=== PATIENT | male | born 1995 | race Caucasian/White ===

== ENCOUNTER 2018-05-16 03:59 | Emergency (ER) | payer MEDICAID, MEDICARE ==
[2018-05-16 04:14] VITALS: BMI 32.5
[2018-05-16 04:19] VITALS: BP 142/79; PULSE 94; RESP 18; TEMP 98.7; O2SAT 99
--- NOTE | 2018-05-16 04:30 | ED PDOC ---
HPI: General Adult Time Seen by Provider: 05/16/18 04:20 Chief Complaint (Nursing): Medical Clearance Chief Complaint (Provider): Back Pain, Feet Blisters History Per: Patient History/Exam Limitations: no limitations Onset/Duration Of Symptoms: Other ("months") Current Symptoms Are (Timing): Still Present Additional Complaint(s): 23 year old male, with a past medical history of ADHD and homelessness, presenting with multiple complaints. Patient reports that he has had back pain for many weeks and blisters developing on his feet secondary to tight shoes and lots of walking. Patient is also complaining of tooth pain ongoing for many months. Patient reports he has a rash all over his body and is requesting food and underwear in the ED. PMD: None Past Medical History Reviewed: Historical Data, Nursing Documentation, Vital Signs Vital Signs: Last Vital Signs Temp 98.7 F 05/16/18 04:14 Pulse 94 H 05/16/18 04:14 Resp 18 05/16/18 04:14 BP 142/79 05/16/18 04:14 Pulse Ox 99 05/16/18 04:52 - Medical History PMH: Denies: Diabetes, Hepatitis, HIV, HTN, Seizures, Sexually Transmitted Disease Other PMH: ADHD - Surgical History Surgical History: No Surg Hx - Family History Family History: States: Unknown Family Hx - Living Arrangements Living Arrangements: Other (homeless) - Social History Current smoker - smoking cessation education provided: No Drugs: Other (PCP) - Immunization History Hx Tetanus Toxoid Vaccination: No Hx Influenza Vaccination: No Hx Pneumococcal Vaccination: No - Home Medications Home Medications: Ambulatory Orders Medication Instructions Recorded DiphenhydrAMINE [Benadryl] 25 mg PO Q6 PRN #30 cap 05/16/18 Ibuprofen [Motrin Tab] 600 mg PO Q8 PRN #60 tab 05/16/18 - Allergies Allergies/Adverse Reactions: Allergies Allergy/AdvReac Type Severity Reaction Status Date / Time No Known Allergies Allergy Verified 05/16/18 04:14 Review of Systems ROS Statement: Except As Marked, All Systems Reviewed And Found Negative ENT: Positive for: Mouth Pain (dental) Musculoskeletal: Positive for: Neck Pain, Back Pain Skin: Positive for: Rash (full body), Lesions (left eyebrow lesions which was sutured weeks ago), Other (blisters to bilateral feet) Physical Exam - Reviewed Nursing Documentation Reviewed: Yes Vital Signs Reviewed: Yes - Physical Exam Appears: Positive for: No Acute Distress (unkempt) Head Exam: Negative for: ATRAUMATIC (3 cm vertical healed laceration to left lateral eye brow with resolving eccymsosis at the inferolateral orbital area) Skin: Positive for: Rash (raised erythematous lesions to extremities and back consistent with insect) Eye Exam: Positive for: EOMI, PERRL ENT: Positive for: Other (dental carries noted; poor dentition) Neck: Positive for: Normal, Painless ROM, Supple Cardiovascular/Chest: Positive for: Regular Rate, Rhythm. Negative for: Murmur Respiratory: Positive for: Normal Breath Sounds. Negative for: Respiratory Distress Gastrointestinal/Abdominal: Positive for: Soft. Negative for: Tenderness Back: Positive for: Normal Inspection (full ROM). Negative for: L CVA Tenderness, R CVA Tenderness Extremity: Positive for: Other (callused lesions to bilateral medial hallux consistent with blisters) Lymphatic: Negative for: Adenopathy Neurologic/Psych: Positive for: Alert. Negative for: Motor/Sensory Deficits - ECG O2 Sat by Pulse Oximetry: 99 (RA) Pulse Ox Interpretation: Normal Medical Decision Making Medical Decision Making: Impression: homelessness Plan: -Benadryl 25mg PO -Motrin 600mg PO -Reevaluation 0434 Patient is now reporting nausea in ED. Phillip ordered Pt with multiple nonemergent complaints. No acutely emergent issues on exam. Likely malingering. Scribe Attestation: Documented by Honorio Stoner, acting as a scribe for Mildred Baez MD. Provider Scribe Attestation: All medical record entries made by the Scribe were at my direction and personally dictated by me. I have reviewed the chart and agree that the record accurately reflects my personal performance of the history, physical exam, medical decision making, and the department course for this patient. I have also personally directed, reviewed, and agree with the discharge instructions and disposition. Disposition - Clinical Impression Clinical Impression: Back pain, Blister of foot, Toothache, Insect bite, Homelessness - Disposition Referrals: [facility] [place] [Outside] Disposition: Routine/Home Disposition Time: 04:30 Condition: IMPROVED Prescriptions: DiphenhydrAMINE [Benadryl] 25 mg PO Q6 PRN #30 cap PRN Reason: Itching / Pruritus Ibuprofen [Motrin Tab] 600 mg PO Q8 PRN #60 tab PRN Reason: Pain, Moderate (4-7) Instructions: Low Back Pain in Adults, Blisters, Insect Bites and Stings (DC), Dental Pain (DC), General (DC) Forms: [facility] [facility] (Estonian)
== END 2018-05-16 04:57 | disposition home or self-care (01) ==
LOC: H.ER 03:59
DX: M54.9 Dorsalgia, unspecified (principal); S90.821A Blister (nonthermal), right foot, initial encounter; S90.822A Blister (nonthermal), left foot, initial encounter; K08.89 Other specified disorders of teeth and supporting structures; F90.9 Attention-deficit hyperactivity disorder, unspecified type; T14.8XXA Other injury of unspecified body region, initial encounter; W57.XXXA Bitten or stung by nonvenomous insect and other nonvenomous arthropods, initial encounter; Z59.0 Homelessness

== ENCOUNTER 2018-06-25 03:52 | Emergency (ER) | payer MEDICAID, MEDICARE ==
[2018-06-25 03:52] VITALS: BMI 28.3
--- NOTE | 2018-06-25 04:14 | ED PDOC ---
HPI: General Adult Chief Complaint (Provider): "I want to sleep" Additional Complaint(s): 23 yo male with no medical problems presents with EMS needing sleep. Pt states he is tired. Pt denies complaints but reports using PCP earlier today. <Loreta Phan - Last Filed: 06/25/18 04:12> <Eliecer Bonilla - Last Filed: 06/27/18 04:29> Time Seen by Provider: 06/25/18 04:01 Chief Complaint (Nursing): Substance Abuse Past Medical History Reviewed: Historical Data, Nursing Documentation, Vital Signs Vital Signs: Last Vital Signs Temp 98.1 F 06/25/18 04:00 Pulse 80 06/25/18 04:00 Resp 16 06/25/18 04:00 BP 130/80 06/25/18 04:00 Pulse Ox 99 06/25/18 04:00 - Medical History PMH: Denies: Diabetes, Hepatitis, HIV, HTN, Seizures, Sexually Transmitted Disease - Surgical History Surgical History: No Surg Hx - Family History Family History: States: Unknown Family Hx - Living Arrangements Living Arrangements: With Family - Social History Current smoker - smoking cessation education provided: No Drugs: Other - Immunization History Hx Tetanus Toxoid Vaccination: No Hx Influenza Vaccination: No Hx Pneumococcal Vaccination: No <Loreta Phan - Last Filed: 06/25/18 04:12> Vital Signs: Last Vital Signs Temp 98.2 F 06/25/18 04:20 Pulse 92 H 06/25/18 04:20 Resp 18 06/25/18 04:20 BP 110/82 06/25/18 04:20 Pulse Ox 98 06/25/18 04:20 <Eliecer Bonilla - Last Filed: 06/27/18 04:29> - Home Medications Home Medications: Ambulatory Orders Medication Instructions Recorded Atenolol/Chlorthalidone 1 tab PO DAILY 05/21/18 [Atenolol/Chlorthalidone 50 mg-25 mg] MetFORMIN [glucOPHAGE] 1,000 mg PO BID 05/21/18 RX: Simvastatin 20 mg PO HS 05/21/18 Ibuprofen [Motrin Tab] 800 mg PO TID PRN #15 tab 06/03/18 Naproxen [Naprosyn] 500 mg PO Q12H #20 tab 06/25/18 - Allergies Allergies/Adverse Reactions: Allergies Allergy/AdvReac Type Severity Reaction Status Date / Time No Known Allergies Allergy Verified 06/24/18 00:28 Review of Systems ROS Statement: Except As Marked, All Systems Reviewed And Found Negative Constitutional: Negative for: Fever, Chills Cardiovascular: Negative for: Chest Pain, Palpitations Respiratory: Negative for: Cough, Shortness of Breath Psych: Positive for: Other (Tired ) <Loreta Phan - Last Filed: 06/25/18 04:12> Physical Exam - Reviewed Nursing Documentation Reviewed: Yes Vital Signs Reviewed: Yes - Physical Exam Appears: Positive for: Well, Non-toxic, No Acute Distress Head Exam: Positive for: ATRAUMATIC, NORMAL INSPECTION, NORMOCEPHALIC Skin: Positive for: Normal Color, Warm, DRY Eye Exam: Positive for: Normal appearance ENT: Positive for: Normal ENT Inspection Neck: Positive for: Normal, Painless ROM Cardiovascular/Chest: Positive for: Regular Rate, Rhythm Respiratory: Positive for: Normal Breath Sounds. Negative for: Accessory Muscle Use, Respiratory Distress Back: Positive for: Normal Inspection Extremity: Positive for: Normal ROM Neurologic/Psych: Positive for: Alert, Oriented, Gait. Negative for: Facial Droop <Loreta Phan - Last Filed: 06/25/18 04:12> - ECG O2 Sat by Pulse Oximetry: 99 Pulse Ox Interpretation: Normal <Loreta Phan - Last Filed: 06/25/18 04:12> Disposition - Patient ED Disposition Is Patient to be Admitted: No Counseled Patient/Family Regarding: Diagnosis, Need For Followup - Disposition Disposition: Routine/Home Disposition Time: 04:12 <Loreta Phan - Last Filed: 06/25/18 04:12> <Eliecer Bonilla - Last Filed: 06/27/18 04:29> - Clinical Impression Clinical Impression: Normal exam - Disposition Condition: STABLE Forms: [facility] (Malaysian) - PA / THERMOMETER TESTER / Resident Statement MD/DO has reviewed & agrees with the documentation as recorded. <Eliecer Bonilla - Last Filed: 06/27/18 04:29>
[2018-06-25 07:27] VITALS: BP 110/82; PULSE 92; RESP 18; TEMP 98.2; O2SAT 98
== END 2018-06-25 04:20 | disposition home or self-care (01) ==
LOC: H.ER 03:52
DX: Z00.00 Encounter for general adult medical examination without abnormal findings (principal)

== ENCOUNTER 2018-06-25 06:04 | Emergency (ER) | payer MEDICAID ==
[2018-06-25 06:07] VITALS: BMI 30.8
[2018-06-25 06:08] VITALS: BP 129/80; PULSE 80; RESP 18; TEMP 98.2; O2SAT 98
--- NOTE | 2018-06-25 07:58 | ED PDOC ---
HPI: Back Time Seen by Provider: 06/25/18 07:08 Chief Complaint (Nursing): Back Pain Additional Complaint(s): 23 y/o F come to ED complaining of low back pain that began a few hours ago. Pain is pressure-like, constant, non-radiating and NOT associated with paresthesias, saddle anesthesia or urinary problems. Pt was recently discharged from ER. Pt is sleepy. Pt denies fever, chest pain, SOB, abdominal pain, nausea, vomiting, constipation, rash or peripheral edema. NKA Meds: none PMD: none PMHx: denied PSHx: denied SHx: lives alone, fci?, smokes, drinks alcohol and admits to marihuana use. Past Medical History Vital Signs: Last Vital Signs Temp 98.2 F 06/25/18 06:07 Pulse 80 06/25/18 06:07 Resp 18 06/25/18 06:07 BP 129/80 06/25/18 06:07 Pulse Ox 98 06/25/18 06:07 - Medical History PMH: Denies: Diabetes, Hepatitis, HIV, HTN, Seizures, Sexually Transmitted Disease - Surgical History Surgical History: No Surg Hx - Family History Family History: States: Unknown Family Hx - Immunization History Hx Tetanus Toxoid Vaccination: No Hx Influenza Vaccination: No Hx Pneumococcal Vaccination: No - Home Medications Home Medications: Ambulatory Orders Medication Instructions Recorded Atenolol/Chlorthalidone 1 tab PO DAILY 05/21/18 [Atenolol/Chlorthalidone 50 mg-25 mg] MetFORMIN [glucOPHAGE] 1,000 mg PO BID 05/21/18 Simvastatin 20 mg PO HS 05/21/18 Ibuprofen [Motrin Tab] 800 mg PO TID PRN #15 tab 06/03/18 Naproxen [Naprosyn] 500 mg PO Q12H #20 tab 06/25/18 - Allergies Allergies/Adverse Reactions: Allergies Allergy/AdvReac Type Severity Reaction Status Date / Time No Known Allergies Allergy Verified 06/24/18 00:28 Review of Systems Constitutional: Negative for: Fever, Chills Eyes: Negative for: Pain ENT: Negative for: Ear Pain, Mouth Pain, Throat Pain Cardiovascular: Negative for: Chest Pain Respiratory: Negative for: Cough, Shortness of Breath Gastrointestinal: Negative for: Nausea, Vomiting, Abdominal Pain Genitourinary Male: Negative for: Dysuria, Frequency, Hematuria Musculoskeletal: Positive for: Back Pain. Negative for: Neck Pain, Shoulder Pain Neurological: Negative for: Weakness, Numbness, Incoordination, Dizziness Physical Exam - Physical Exam Appears: Positive for: Well, No Acute Distress Head Exam: Positive for: ATRAUMATIC, NORMAL INSPECTION Skin: Positive for: Normal Color Eye Exam: Positive for: Normal appearance, EOMI ENT: Positive for: Normal ENT Inspection Neck: Positive for: Normal, Painless ROM Cardiovascular/Chest: Positive for: Regular Rate, Rhythm Respiratory: Positive for: Normal Breath Sounds. Negative for: Crackles, Rhonchi, Wheezing Gastrointestinal/Abdominal: Positive for: Normal Exam, Bowel Sounds, Soft. Negative for: Tenderness Back: Positive for: Normal Inspection. Negative for: L CVA Tenderness, R CVA Tenderness, Vertebral Tenderness, Decreased ROM Extremity: Positive for: Normal ROM. Negative for: Tenderness, Pedal Edema - ECG O2 Sat by Pulse Oximetry: 98 Medical Decision Making Medical Decision Making: At: 07:15, pt was evaluated and examined with Dr Almanzar. Pt is not in acute d istress, no paraspinal tenderness on lower back. At 09:24, after reviewing chart. Low back pain may be a chronic issue. Pt was recommended to obtain a PCP and follow up as outpatient. -Pt instructed to apply warm compresses and use of OTC analgesic. -Pt will be discharged home. Disposition - Clinical Impression Clinical Impression: Chronic back pain - Patient ED Disposition Is Patient to be Admitted: No - Disposition Referrals: [facility] [Outside] Disposition Time: 09:28 Condition: IMPROVED Prescriptions: Naproxen [Naprosyn] 500 mg PO Q12H #20 tab Instructions: Chronic Pain Forms: [id number] [facility] (Sri Lankan)
== END 2018-06-25 09:26 | disposition home or self-care (01) ==
LOC: H.ER 06:04
DX: G89.29 Other chronic pain (principal)

== ENCOUNTER 2018-07-02 15:13 | Emergency (ER) | payer MEDICAID, MEDICARE ==
[2018-07-02 15:13] VITALS: BMI 30.8
--- NOTE | 2018-07-02 15:21 | ED PDOC ---
HPI: Psych/Substance Abuse Chief Complaint (Provider): crisis eval History Per: Patient Additional Complaint(s): 23 y/o male presents for crisis evaluation. Patient was at train station and tried to get on a train without paying but was intercepted by police. Police threatened him with a summons and patient stated he was going to kill himself, so he was brought to ED by police. Upon arrival patient denies any intention of harming himself or others. He admits to drinking alcohol last night and also using PCP. Patient also has secondary complaint of pain to right side of neck ongoing for 1 week. He denies trauma or injury, denies vision changes, dizziness, chest pain, shortness of breath or dyspnea on exertion. Patient arrives with police but is not under arrest. PMD: none <Mildred Arnett - Last Filed: 07/02/18 15:49> <Maria C Coleman - Last Filed: 07/02/18 22:45> Time Seen by Provider: 07/02/18 15:20 Supervising Attending Note - Attestation: I have personally seen and examined this patient.: No I have reviewed all pertinent clinical information, including history, physical exam and plan: Yes <Maria C Coleman - Last Filed: 07/02/18 22:45> Past Medical History Reviewed: Historical Data, Nursing Documentation, Vital Signs - Medical History PMH: No Chronic Diseases - Surgical History Surgical History: No Surg Hx - Family History Family History: States: No Known Family Hx - Living Arrangements Living Arrangements: Other (non-domiciled) - Social History Current smoker - smoking cessation education provided: No Alcohol: Social Drugs: Other (PCP) <Mildred Arnett - Last Filed: 07/02/18 15:49> Vital Signs: Last Vital Signs Temp 97.0 F L 07/02/18 15:21 Pulse 89 07/02/18 15:21 Resp 16 07/02/18 15:21 BP 144/80 07/02/18 15:21 Pulse Ox 99 07/02/18 16:43 <Maria C Coleman - Last Filed: 07/02/18 22:45> - Home Medications Home Medications: Ambulatory Orders Medication Instructions Recorded RX: Ibuprofen [Motrin Tab] 400 mg PO Q6 PRN #20 tab 07/02/18 - Allergies Allergies/Adverse Reactions: Allergies Allergy/AdvReac Type Severity Reaction Status Date / Time No Known Allergies Allergy Verified 06/24/18 00:28 Review of Systems ROS Statement: Except As Marked, All Systems Reviewed And Found Negative Constitutional: Negative for: Fever Cardiovascular: Negative for: Chest Pain Musculoskeletal: Positive for: Neck Pain Psych: Positive for: Suicidal ideation, Other (PCP and etoh use last night) <Mildred Arnett - Last Filed: 07/02/18 15:49> Physical Exam - Reviewed Nursing Documentation Reviewed: Yes Vital Signs Reviewed: Yes - Physical Exam Appears: Positive for: Well, Non-toxic, No Acute Distress Skin: Positive for: Normal Color. Negative for: Rash Eye Exam: Positive for: Normal appearance Neck: Positive for: Pain On Movement Of Neck Cardiovascular/Chest: Positive for: Regular Rate, Rhythm Respiratory: Positive for: Normal Breath Sounds. Negative for: Wheezing, Respiratory Distress Extremity: Positive for: Normal ROM Neurologic/Psych: Positive for: Alert, Oriented <Mildred Arnett - Last Filed: 07/02/18 15:49> - ECG O2 Sat by Pulse Oximetry: 99 Pulse Ox Interpretation: Normal <Mildred Arnett - Last Filed: 07/02/18 15:49> Medical Decision Making Medical Decision Makin23 y/o male with neck pain, here for crisis eval Plan: PO motrin Crisis consult As per crisis counselor and psychiatrist professional security officer Dr. Andrews, patient does not meet criteria for admission and is stable for discharge. Previous records reviewed. Patient was seen earlier this morning at [place] ED for same complaints. He was given rx motrin and states he still have the rx. He was instructed to fill med at any pharmacy and take as needed for neck pain. Patient was referred to clinic for follow up. <Mildred Arnett - Last Filed: 07/02/18 15:49> Disposition - Patient ED Disposition Is Patient to be Admitted: No Counseled Patient/Family Regarding: Diagnosis, Need For Followup, Rx Given - Disposition Disposition: Routine/Home Disposition Time: 15:41 <Mildred Arnett - Last Filed: 07/02/18 15:49> <Maria C Coleman - Last Filed: 07/02/18 22:45> - Clinical Impression Clinical Impression: Neck sprain, Phencyclidine (PCP) use disorder, mild, abuse - Disposition Referrals: [facility] [place] [Outside] Condition: STABLE Additional Instructions: Filll rx for motrin that you were provided with earlier. Follow up with clinic. Instructions: Neck Sprain (DC), Drug Abuse Treatment Forms: [employer] [facility] (Cymro)
[2018-07-02 15:25] VITALS: BP 144/80; PULSE 89; RESP 16; TEMP 97; O2SAT 99
== END 2018-07-02 16:03 | disposition home or self-care (01) ==
LOC: H.ER 15:13
DX: S13.9XXA Sprain of joints and ligaments of unspecified parts of neck, initial encounter (principal); F16.10 Hallucinogen abuse, uncomplicated; Z00.8 Encounter for other general examination

== ENCOUNTER 2018-08-18 03:50 | Inpatient (IN) | payer MEDICARE, MEDICAID ==
[2018-08-18 04:00] VITALS: BMI 28.1
--- NOTE | 2018-08-18 05:09 | ED PDOC ---
HPI: Psych/Substance Abuse Time Seen by Provider: 08/18/18 04:06 Chief Complaint (Nursing): Psychiatric Evaluation Chief Complaint (Provider): Suicidal Attempt History Per: Patient, EMS History/Exam Limitations: no limitations Onset/Duration Of Symptoms: Mins (just prior to arrival) Additional Complaint(s): 23 year old homeless male with pmhx of depression presents to the ED via EMS s/p a self-reported suicide attempt by trying to hang himself with a chain. Upon trying to evaluation patient, he kept stating he wants to be left to sleep because he has been up all day. PMD: none provided Past Medical History Reviewed: Historical Data, Nursing Documentation, Vital Signs Vital Signs: Last Vital Signs Temp 98.8 F 08/18/18 04:00 Pulse 76 08/18/18 04:00 Resp 16 08/18/18 04:00 BP 124/68 08/18/18 04:00 Pulse Ox 99 08/18/18 04:00 - Medical History PMH: Bipolar Disorder, Depression, Schizophrenia Denies: Diabetes, Hepatitis, HIV, HTN, Chronic Kidney Disease, Seizures, Sexually Transmitted Disease - Surgical History Surgical History: No Surg Hx - Family History Family History: States: Unknown Family Hx - Living Arrangements Living Arrangements: Other (homeless) - Social History Current smoker - smoking cessation education provided: Yes Alcohol: None Drugs: Cannabis, Cocaine, Other (PCP) - Immunization History Hx Tetanus Toxoid Vaccination: No Hx Influenza Vaccination: No Hx Pneumococcal Vaccination: No - Home Medications Home Medications: Ambulatory Orders Medication Instructions Recorded RX: Amoxicillin 500 mg PO TID #21 tablet 08/17/18 RX: Ibuprofen [Motrin Tab] 600 mg PO Q6 #15 tab 08/17/18 - Allergies Allergies/Adverse Reactions: Allergies Allergy/AdvReac Type Severity Reaction Status Date / Time No Known Allergies Allergy Verified 08/20/18 12:04 Review of Systems ROS Statement: Except As Marked, All Systems Reviewed And Found Negative Psych: Positive for: Depression, Suicidal ideation (and attempt) Physical Exam - Reviewed Nursing Documentation Reviewed: Yes Vital Signs Reviewed: Yes - Physical Exam Appears: Positive for: No Acute Distress Head Exam: Positive for: ATRAUMATIC, NORMOCEPHALIC Skin: Positive for: Normal Color. Negative for: Rash Eye Exam: Positive for: Normal appearance ENT: Positive for: Normal ENT Inspection Neck: Positive for: Normal, Painless ROM, Supple Cardiovascular/Chest: Positive for: Regular Rate, Rhythm Respiratory: Positive for: Normal Breath Sounds Gastrointestinal/Abdominal: Positive for: Normal Exam, Soft. Negative for: Tenderness Extremity: Positive for: Normal ROM Neurologic/Psych: Positive for: Alert (and awake) - Laboratory Results Result Diagrams: 08/18/18 11:50 08/18/18 11:50 - ECG O2 Sat by Pulse Oximetry: 99 (RA) Pulse Ox Interpretation: Normal Medical Decision Making Medical Decision Making: Time: 407 Initial Impression: 23 year old male s/p suicidal gesture in setting of known depression Initial Plan: --Crisis evaluation --1:1 observation 0700 Patient care endorsed from this provider to Dr. Quezada pending crisis evaluation. Scribe Attestation: Documented by Alta Onofre, acting as a scribe for Kee Anderson MD. Provider Scribe Attestation: All medical record entries made by the Scribe were at my direction and personally dictated by me. I have reviewed the chart and agree that the record accurately reflects my personal performance of the history, physical exam, medical decision making, and the department course for this patient. I have also personally directed, reviewed, and agree with the discharge instructions and disposition. Disposition - Clinical Impression Clinical Impression: Depression - Patient ED Disposition Is Patient to be Admitted: Transfer of Care - Disposition Disposition: Transfer of Care Disposition Time: 07:00 Condition: FAIR Patient Signed Over To: Estefani Quezada
[2018-08-18 06:48] VITALS: PULSE 70
--- NOTE | 2018-08-18 07:36 | ED PDOC ---
- Laboratory Results Result Diagrams: 08/18/18 11:50 08/18/18 11:50 - ECG O2 Sat by Pulse Oximetry: 98 (RA) Pulse Ox Interpretation: Normal Medical Decision Making Medical Decision Makin:[address] Anderson to this provider. Patient presents with extensive psychiatric history after an attempted suicide reportedly by hanging. Pending crisis evaluation If there is an indication for admission, will provide full medical workup. 11:24 Pt to be admitted to psychiatry under Dr. Andrews for depression. Medically optimized. Scribe Attestation: Documented by Veronica Larsen acting as a scribe for Estefani Quezada MD Provider Scribe Attestation: All medical record entries made by the Scribe were at my direction and personally dictated by me. I have reviewed the chart and agree that the record accurately reflects my personal performance of the history, physical exam, medical decision making, and the department course for this patient. I have also personally directed, reviewed, and agree with the discharge instructions and disposition. Disposition - Clinical Impression Clinical Impression: Depression - POA Present On Arrival: None - Disposition Disposition: Admitted as In-Patient Disposition Time: 11:24 Condition: FAIR
[2018-08-18 12:00] VITALS: BP 118/63; RESP 20; TEMP 97
[2018-08-18 12:04] LABS: BASO % 0.6 % (0.0-2.0); EOS # 0.3 K/uL (0.0-0.7); EOS % 4.4 % (0.0-4.0); HEMOGLOBIN 13.6 g/dL (12.0-18.0); LYMPH # 1.4 K/uL (1.0-4.3); LYMPH % 20.2 % (20.0-40.0); MEAN CELL VOLUME 93.9 fl (80.0-94.0); MEAN CORPUSCULAR HEMOGLOBIN 31.3 pg (27.0-31.0); MEAN CORPUSCULAR HGB CONC 33.4 g/dL (33.0-37.0); MEAN PLATELET VOLUME 8.7 fl (7.2-11.7); MONO # 0.9 K/uL (0.0-0.8); MONO % 12.5 % (0.0-10.0); NEUT # 4.3 K/uL (1.8-7.0); NEUT % 62.3 % (50.0-75.0); NRBC % 0.1 % (0.0-0.0); RBC 4.35 Mil/uL (4.40-5.90); RED CELL DISTRIBUTION WIDTH 12.5 % (11.5-14.5); WHITE BLOOD COUNT 6.8 K/uL (4.8-10.8)
[2018-08-18 12:10] LABS: BLOOD UREA NITROGEN 12 mg/dl (9-20); CALCIUM 9.5 mg/dL (8.4-10.2); GFR NON-AFRICAN AMERICAN > 60
[2018-08-18] MEDS ORDERED: DiphenhydrAMINE 50 mg/ml Inj IM PRN (12:10)
[2018-08-18] MEDS ORDERED: Magnesium Hydroxide Susp 30 ml UD PO PRN (12:10)
[2018-08-18] MEDS ORDERED: Alum-Mag Hydrox-Simethicone Susp (30 mL) PO PRN (12:10)
--- NOTE | 2018-08-18 12:10 | RAD ---
Date of service: 08/18/2018 HISTORY: possible admission COMPARISON: No prior. FINDINGS: LUNGS: No active pulmonary disease. PLEURA: No significant pleural effusion identified, no pneumothorax apparent. CARDIOVASCULAR: No aortic atherosclerotic calcification present. Normal cardiac size. No pulmonary vascular congestion. OSSEOUS STRUCTURES: No significant abnormalities. VISUALIZED UPPER ABDOMEN: Normal. OTHER FINDINGS: None. IMPRESSION: No active disease.
[2018-08-18 12:18] LABS: BARBITURATES, UR NEGATIVE (NEGATIVE); BENZODIAZEPINES, UR NEGATIVE (NEGATIVE); OPIATES, UR NEGATIVE (NEGATIVE); PHENCYCLIDINE, UR POSITIVE (NEGATIVE)
--- NOTE | 2018-08-18 13:56 | PCM.PSYCH ---
Initial Psychiatric Evaluation - Initial Psychiatric Evaluation Type of Admission: Voluntary Legal Status: Capacity Chief Complaint (in patient's own words): "I don't need to be here." Patient's Reaction to Hospitalization: HPI: 23 yo male w/ psychiatric history of PCP use and h/o of being diagnosed w/ schizophrenia in the past, as per chart. Pt BIB [facility] after he was found with a wire wrapped around his neck as a suicide attempt. Patient now denies, but initially had admitted to using PCP. Pt now denying all symptoms. Denies depression/anxiety/AH/VH/SI/HI. He does not want psychiatric treatment or medications and submitted a 48 hr letter requesting to be discharged. PPHx: H/o multiple psychiatric admission; h/o PCP abuse PMHx: Denies acute medical issues ALL: NKDA SHx: Lives w/ mothers; smokes 5 cig per day; PCP abuse; denies ETOH use Current Medications: Active Medications Generic Name Dose Route Start Last Admin Trade Name Freq PRN Reason Stop Dose Admin Acetaminophen 650 mg 08/18/18 12:10 Tylenol 325mg Tab PO Q4 PRN Pain, moderate (4-7) Al Hydrox/Mg Hydrox/Simethicone 30 ml 08/18/18 12:10 Maalox Plus 30 Ml PO Q4 PRN Dyspepsia Diphenhydramine HCl 50 mg 08/18/18 12:10 Benadryl IM Q6 PRN Extrapyramidal S/S Unable PO Diphenhydramine HCl 50 mg 08/18/18 12:10 Benadryl PO Q6 PRN Extrapyramidal Symptoms Haloperidol 5 mg 08/18/18 12:10 Haldol PO Q4 PRN Agitation Haloperidol Lactate 5 mg 08/18/18 12:10 Haldol IM Q4 PRN Agitation, Unable to Take PO Lorazepam 2 mg 08/18/18 12:10 Ativan IM Q4 PRN Anxiety/Agitation,Unable PO Magnesium Hydroxide 30 ml 08/18/18 12:10 Milk Of Magnesia PO HS PRN Constipation Past Psychiatric History - Past Psychiatric History Previous Treatment History: Inpatient Pertinent Medical Hx (Current Medical&Sleep Prob, Allergies): Allergies Allergy/AdvReac Type Severity Reaction Status Date / Time No Known Allergies Allergy Verified 08/03/18 17:51 Amoxicillin 500 mg PO TID #21 tablet 08/17/18 Ibuprofen [Motrin Tab] 600 mg PO Q6 #15 tab 08/17/18 Review of Systems - Psychiatric Psychiatric: As Per HPI, Irritability, Suicidal Ideation Mental Status Examination - Personal Presentation Personal Presentation: Looks stated age - Affect Affect: Constricted - Motor Activity Motor Activity: Calm - Reliability in Providing Information Reliability in Providing Information: Other (Not cooperative with providing information) - Speech Speech: Organized - Mood Mood: Neutral - Formal Thought Process Formal Thought Process: No Impairment - Hallucinations/Delusions Additional comments: Denies AH/VH/paranoia/delusions - Obsessions/Compulsions Obsessions: No Compulsions: No - Cognitive Functions Orientation: Person, Place, Situation, Time Sensorium: Alert Judgement: Imparied, as evidence by: Poor judgement, Imparied, as evidence by: Lack of insight into illness Memory: Recent intact, as evidence by: Ability to recall events of the day - Risk Risk: Suicidal, Diminished functioning - Strength & Assets Inventory Strength & Assets Inventory: Family support DSM 5 DX - DSM 5 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
--- NOTE | 2018-08-18 14:17 | CARD ---
APPROVED REPORT Date of service: 08/18/2018 EKG Measurement Heart [id number] <Conclusion> Normal sinus rhythm Early repolarization Normal ECG
--- NOTE | 2018-08-18 15:05 | PCM.BM ---
<Bridget Gonzalez - Last Filed: 08/18/18 15:03> Treatment Plan Problems - Problems identified on initial assessmt High Risk Violence Date Initiated: 08/18/18 Time Initiated: 15:03 Assessment reference: NA Status: Active Denial Date Initiated: 08/18/18 Time Initiated: 15:04 Assessment reference: NA Status: Active Defensive Coping Date Initiated: 08/18/18 Time Initiated: 15:05 Assessment reference: NA Status: Active Knowlege deficit Date Initiated: 08/18/18 Time Initiated: 15:09 Assessment reference: NA Status: Active Treatment assets and liabiliti Patient Assests: physically healthy, strong elba Patient Liabilities: relationship conflicts, other (denial of psychiatric problems and drug problems) - Milieu Protocol Maintain good personal hygiene: daily Encourage regular showers, every shift Remind patient to perform daily oral care, every shift Assist patient to perform ADL's Conduct patient checks and document Observation sheet: Q15 minutes Maintain personal safety: every shift Educate patient to report safety concerns to staff, every shift Monitor environment for contraband/sharps Medication safety: Monitor for expected outcome, potential side effects: every shift, Assess barriers to learning: every shift, Assess readiness for medication education: every shift Milieu Narrative: Substance Induced Mood Disorder; PCP Use Disorder -Admit to psychiatry unit -Nicotine patch -Patient currently refusing all psychiatric medications -Screen for involuntary psychiatric commitment -Individual and group therapy -Disposition planning Discharge/Continuing Care - Treatment Team Participation Patient/Family/SO Statement: Substance Induced Mood Disorder; PCP Use Disorder -Admit to psychiatry unit -Nicotine patch -Patient currently refusing all psychiatric medications -Screen for involuntary psychiatric commitment -Individual and group therapy -Disposition planning <Temo Herron - Last Filed: 08/19/18 17:37> Family Contact Family involvement: Family/SO is involved Family contact: Patient declines to allow family contact at present Family contact name: Pt refused. - Goals for Treatment Patient goals for treatment: Pt asked to be discharged and has already signed a 48 hour notice and was screened by [facility] and not accepted. Discharge/Continuing Care - Education Needs Education Needs: Patient Medication, Patient Diagnosis/Disease Process, Patient Coping Skills, Patient Community resources, Patient Aftercare Safety Plan - Discharge Discharge Criteria: Tolerates medication w/o severe side effects, Free of Suicidal thoughts, Free of paranoid thoughts, Free of agitation, Normal sleep pattern, Ability to care for self, Reduction of target symptoms Discharge to:: Home, With Family - Additional Comments 08/19/18 17:36 Pt seen in tx team on 08/19/18. It was explained to pt that it is the treatment teams recommendation that pt staff for treatment of his paranoid, disorganized thoughts. However, pt is refusing to rescind his 48 hour notice and pt will be discharged AMA. Pt presented ot treatment team as calm. Pt denied SI/HI and AVT hallucinations. Pt is oriented X4. - Treatment Team Participation Discussed with Family/SO: No Was Patient/Family/SO present at Treatment Team Meeting: Yes
--- NOTE | 2018-08-18 15:27 | CP.PCM.CON ---
History of Present Illness - History of Present Illness History of Present Illness: 23 y/o man w/ no pmh is admitted for hallucinations secondary to substance abuse. Patient reports he took PCP but doesn't remember when he took it and has since reported hearing voices. Currently denies suicidal/homicidal ideation. Otherwise, patient has no complaints. Patient denies headaches, chest pain, dizziness, dyspnea, abdominal pain, nausea, vomiting, dysuria, or fever. PMH: denies meds: denies PSH: denies FamHx: denies SOC: smokes 5 cigarettes/day, stopped alcohol abuse 2 months ago, recent PCP use ROS: 12 points assessed and negative unless otherwise reported in HPI Review of Systems - Review of Systems All systems: reviewed and no additional remarkable complaints except - Constitutional Constitutional: absent: Chills, Fever, Headache - EENT Eyes: absent: Change in Vision - Cardiovascular Cardiovascular: absent: Chest Pain - Respiratory Respiratory: absent: Dyspnea - Gastrointestinal Gastrointestinal: absent: Abdominal Pain, Nausea, Vomiting - Genitourinary Genitourinary: absent: Dysuria - Integumentary Integumentary: absent: Rash - Neurological Neurological: absent: Dizziness, Headaches - Psychiatric Psychiatric: As Per HPI Past Patient History - Infectious Disease Hx of Infectious Diseases: None - Tetanus Immunizations Tetanus Immunization: Unknown - Past Social History Alcohol: None Drugs: Cannabis, Cocaine, Other (PCP) - CARDIAC Hx Cardiac Disorders: No Hx Hypertension: No - PULMONARY Hx Respiratory Disorders: No Hx Tuberculosis: No - NEUROLOGICAL Hx Neurological Disorder: No HX Cerebrovascular Accident: No Hx Seizures: No - HEENT Hx HEENT Problems: No - RENAL Hx Chronic Kidney Disease: No - ENDOCRINE/METABOLIC Hx Endocrine Disorders: No - HEMATOLOGICAL/ONCOLOGICAL Hx Blood Disorders: No Hx Cancer: No Hx Human Immunodeficiency Virus (HIV): No - INTEGUMENTARY Hx Dermatological Problems: No - MUSCULOSKELETAL/RHEUMATOLOGICAL Hx Musculoskeletal Disorders: No - GASTROINTESTINAL Hx Gastrointestinal Disorders: No - GENITOURINARY/GYNECOLOGICAL Hx Genitourinary Disorders: No Hx Sexually Transmitted Disorders: No - PSYCHIATRIC Hx Physical Abuse: No Hx Sexual Abuse: No Hx Substance Use: Yes (denies but +PCP) - SURGICAL HISTORY Hx Surgeries: Yes Hx Orthopedic Surgery: Yes (right wrist rods) - ANESTHESIA Hx Anesthesia: Yes Hx Anesthesia Reactions: No Hx Malignant Hyperthermia: No Meds Allergies/Adverse Reactions: Allergies Allergy/AdvReac Type Severity Reaction Status Date / Time No Known Allergies Allergy Verified 08/03/18 17:51 - Medications Medications: Current Medications Acetaminophen (Tylenol 325mg Tab) 650 mg PO Q4 PRN PRN Reason: Pain, moderate (4-7) Al Hydrox/Mg Hydrox/Simethicone (Maalox Plus 30 Ml) 30 ml PO Q4 PRN PRN Reason: Dyspepsia Diphenhydramine HCl (Benadryl) 50 mg IM Q6 PRN PRN Reason: Extrapyramidal S/S Unable PO Diphenhydramine HCl (Benadryl) 50 mg PO Q6 PRN PRN Reason: Extrapyramidal Symptoms Haloperidol (Haldol) 5 mg PO Q4 PRN PRN Reason: Agitation Haloperidol Lactate (Haldol) 5 mg IM Q4 PRN PRN Reason: Agitation, Unable to Take PO Lorazepam (Ativan) 2 mg IM Q4 PRN PRN Reason: Anxiety/Agitation,Unable PO Lorazepam (Ativan) 1 mg PO Q8 PRN PRN Reason: Agitation Magnesium Hydroxide (Milk Of Magnesia) 30 ml PO HS PRN PRN Reason: Constipation Nicotine (Nicoderm Cq) 1 patch TD DAILY MARY Physical Exam - Constitutional Appears: Non-toxic, No Acute Distress - Head Exam Head Exam: ATRAUMATIC, NORMAL INSPECTION, NORMOCEPHALIC - Eye Exam Eye Exam: Normal appearance - ENT Exam ENT Exam: Mucous Membranes Moist - Neck Exam Neck exam: Positive for: Full Rom. Negative for: Tenderness - Respiratory Exam Respiratory Exam: Clear to Auscultation Bilateral, NORMAL BREATHING PATTERN. absent: Decreased Breath Sounds, Rales, Rhonchi, Wheezes, Respiratory Distress - Cardiovascular Exam Cardiovascular Exam: REGULAR RHYTHM, RRR. absent: Tachycardia - GI/Abdominal Exam GI & Abdominal Exam: Normal Bowel Sounds, Soft. absent: Distended, Tenderness - Extremities Exam Extremities exam: Positive for: normal capillary refill, normal inspection - Neurological Exam Neurological exam: Alert, Normal Gait, Oriented x3 - Skin Skin Exam: Dry Additional comments: healed abrasion on right knee Results - Vital Signs Recent Vital Signs: Last Vital Signs Temp 97 F L 08/18/18 12:03 Pulse 70 08/18/18 12:03 Resp 20 08/18/18 13:13 BP 118/63 08/18/18 12:03 Pulse Ox 100 08/18/18 12:00 - Labs Result Diagrams: 08/18/18 11:50 08/18/18 11:50 Labs: Laboratory Results - last 24 hr 08/18/18 08/18/18 08/18/18 11:50 11:50 11:50 WBC 6.8 RBC 4.35 L Hgb 13.6 Hct 40.8 MCV 93.9 MCH 31.3 H MCHC 33.4 RDW 12.5 Plt Count 182 MPV 8.7 Neut % (Auto) 62.3 Lymph % (Auto) 20.2 [place] % (Auto) 12.5 H Eos % (Auto) 4.4 H Baso % (Auto) 0.6 Neut # (Auto) 4.3 Lymph # (Auto) 1.4 [place] # (Auto) 0.9 H Eos # (Auto) 0.3 Baso # (Auto) 0.0 Sodium 140 Potassium 4.3 Chloride 105 Carbon Dioxide 26 Anion Gap 13 BUN 12 Creatinine 0.9 Est GFR ( Amer) > 60 Est GFR (Non-Af Amer) > 60 Random Glucose 95 Calcium 9.5 Urine Opiates Screen Negative Urine Methadone Screen Negative Ur Barbiturates Screen Negative Ur Phencyclidine Scrn Positive H Ur Amphetamines Screen Negative U Benzodiazepines Scrn Negative U Oth Cocaine Metabols Negative U Cannabinoids Screen Negative Alcohol, Quantitative < 10 Assessment & Plan - Assessment and Plan (Free Text) Assessment: 3 y/o man w/ no pmh is admitted for hallucinations secondary to substance abuse. Plan: Hallucinations Secondary to Substance abuse - recent PCP use - management as per psychiatry team Nicotine abuse - nicotine patch daily
--- NOTE | 2018-08-19 11:23 | PCM.PYCHDC ---
Mental Status Examination - Mental Status Examination Orientation: Person, Place Memory: Intact Mood: Neutral Affect: Constricted Speech: Appropriate Attention: WNL Concentration: WNL Association: WNL Fund of Knowledge: WNL Formal Thought Process: Circumstantial Description of patient's judgement and insight: poor insight and judgment Psychotic Thoughts and Behaviors: pt on discharge denied psychotic symptoms, non were elicited Suicidal Ideation: No Current Homicidal Ideation?: No Discharge Summary - Discharge Note Reason for Hospitalization: 23 yo male w/ psychiatric history of PCP use and h/o of being diagnosed w/ schizophrenia in the past, as per chart. Pt BIB [facility] after he was found with a wire wrapped around his neck as a suicide attempt. Patient now denies, but initially had admitted to using PCP. Pt now denying all symptoms. Denies depression/anxiety/AH/VH/SI/HI. He does not want psychiatric treatment or medications and submitted a 48 hr letter requesting to be discharged. Laboratory Data: Abnormal Lab Results 08/18/18 08/18/18 08/18/18 11:50 11:50 11:50 WBC 6.8 RBC 4.35 L Hgb 13.6 Hct 40.8 MCV 93.9 MCH 31.3 H MCHC 33.4 RDW 12.5 Plt Count 182 MPV 8.7 Neut % (Auto) 62.3 Lymph % (Auto) 20.2 [place] % (Auto) 12.5 H Eos % (Auto) 4.4 H Baso % (Auto) 0.6 Neut # (Auto) 4.3 Lymph # (Auto) 1.4 [place] # (Auto) 0.9 H Eos # (Auto) 0.3 Baso # (Auto) 0.0 Sodium 140 Potassium 4.3 Chloride 105 Carbon Dioxide 26 Anion Gap 13 BUN 12 Creatinine 0.9 Est GFR ( Amer) > 60 Est GFR (Non-Af Amer) > 60 Random Glucose 95 Calcium 9.5 Urine Opiates Screen Negative Urine Methadone Screen Negative Ur Barbiturates Screen Negative Ur Phencyclidine Scrn Positive H Ur Amphetamines Screen Negative U Benzodiazepines Scrn Negative U Oth Cocaine Metabols Negative U Cannabinoids Screen Negative Alcohol, Quantitative < 10 Consultations:: List each consultation separately and include: 1. Reason for request. 2. Findings. 3. Follow-up Summary of Hospital Course include:: 1. Description of specific treatment plan utilized for patients during their course of treatmen. 2. Summarize the time- course for resolution of acute symptoms and/or regressed behaviors. 3. Describe issues identified and worked on during hospitalization. 4. Describe medication utilized. 5. Describe medical problems identified and treated. 6. Reassessment of suicide risk Summary of Hospital Course: pt on admission was refusing medications , requesting to be discharged, signed 48 hour notice to be released pt was referred to [facility] to be screened for involuntary admission for continuity of treatment , pt was found not to meet criteria for involuntary admission pt was advised to continue with treatment for possible referral to rehab , pt declined, pt denied suicidal or homicidal ideation, denied perceptual disturbances,pt mental status on discharge was not danger to self or others pt was discharged against medical advise - Final Diagnosis (DSM 5) Condition upon Discharge: GOOD 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
[2018-08-21 15:22] VITALS: O2SAT 98
== END 2018-08-19 13:28 | disposition left against medical advice (07) | DRG 894 ==
LOC: H.ER 03:50 → H.ERHOLD 11:24 → H.PSYCH 13:10
PROVIDERS: ADMIT Psychiatry & Neurology Psychiatry; ATTEND Psychiatry & Neurology Psychiatry
PROC: HZ52ZZZ Individual Psychotherapy for Substance Abuse Treatment, Cognitive-Behavioral (ICD-10-PCS; principal; 2018-08-18)
PROC: GZHZZZZ Group Psychotherapy (ICD-10-PCS; 2018-08-18)
PROC: GZ58ZZZ Individual Psychotherapy, Cognitive-Behavioral (ICD-10-PCS; 2018-08-18)
DX: F16.151 Hallucinogen abuse with hallucinogen-induced psychotic disorder with hallucinations (principal); F19.94 Other psychoactive substance use, unspecified with psychoactive substance-induced mood disorder; F20.9 Schizophrenia, unspecified; F10.10 Alcohol abuse, uncomplicated; F17.210 Nicotine dependence, cigarettes, uncomplicated; Z59.0 Homelessness

== ENCOUNTER 2018-08-20 03:31 | Emergency (ER) | payer MEDICAID, MEDICARE ==
[2018-08-20 03:31] VITALS: BMI 28.1
[2018-08-20 05:09] LABS: BARBITURATES, UR NEGATIVE (NEGATIVE); BENZODIAZEPINES, UR NEGATIVE (NEGATIVE); OPIATES, UR NEGATIVE (NEGATIVE); PHENCYCLIDINE, UR POSITIVE (NEGATIVE)
--- NOTE | 2018-08-20 05:42 | ED PDOC ---
HPI: Psych/Substance Abuse Time Seen by Provider: 08/20/18 03:35 Chief Complaint (Nursing): Psychiatric Evaluation Chief Complaint (Provider): Psychiatric Evaluation History Per: Patient History/Exam Limitations: no limitations Associated Symptoms: denies: Suicidal Thoughts Additional Complaint(s): 23 years old male with history of PCP abuse presents to ER for evaluation of auditory hallucinations talking about his grandmother, telling him that she is alive and well. Patient is not persecutory and doesn't feel suicidal or homicidal. He was admitted yesterday in psychiatry. PMD: non provided Past Medical History Reviewed: Historical Data, Nursing Documentation, Vital Signs Vital Signs: Last Vital Signs Temp 97.5 F L 08/20/18 03:39 Pulse 69 08/20/18 03:39 Resp 14 08/20/18 03:39 BP 104/63 08/20/18 03:39 Pulse Ox 97 08/20/18 03:39 - Medical History PMH: Bipolar Disorder, Depression, Schizophrenia Denies: Diabetes, Hepatitis, HIV, HTN, Chronic Kidney Disease, Seizures, Sexually Transmitted Disease - Surgical History Surgical History: No Surg Hx - Family History Family History: States: Unknown Family Hx - Social History Current smoker - smoking cessation education provided: Yes Alcohol: Social - Immunization History Hx Tetanus Toxoid Vaccination: No Hx Influenza Vaccination: No Hx Pneumococcal Vaccination: No - Home Medications Home Medications: Ambulatory Orders Medication Instructions Recorded Amoxicillin 500 mg PO TID #21 tablet 08/17/18 Ibuprofen [Motrin Tab] 600 mg PO Q6 #15 tab 08/17/18 - Allergies Allergies/Adverse Reactions: Allergies Allergy/AdvReac Type Severity Reaction Status Date / Time No Known Allergies Allergy Verified 08/20/18 03:39 Review of Systems ROS Statement: Except As Marked, All Systems Reviewed And Found Negative Psych: Positive for: Other (auditory hallucinations). Negative for: Suicidal ideation (or homicidal) Physical Exam - Reviewed Nursing Documentation Reviewed: Yes Vital Signs Reviewed: Yes - Physical Exam Appears: Positive for: No Acute Distress Head Exam: Positive for: ATRAUMATIC, NORMOCEPHALIC Skin: Positive for: Normal Color, Warm, Dry Eye Exam: Positive for: Normal appearance, EOMI, PERRL ENT: Positive for: Normal ENT Inspection Neck: Positive for: Normal, Painless ROM, Supple Cardiovascular/Chest: Positive for: Regular Rate, Rhythm. Negative for: Murmur Respiratory: Positive for: Normal Breath Sounds. Negative for: Wheezing Gastrointestinal/Abdominal: Positive for: Normal Exam, Soft. Negative for: Tenderness Back: Positive for: Normal Inspection. Negative for: L CVA Tenderness, R CVA Tenderness Extremity: Positive for: Normal ROM. Negative for: Pedal Edema, Deformity Neurologic/Psych: Positive for: Alert, Oriented (x3). Negative for: Motor/Sensory Deficits - ECG O2 Sat by Pulse Oximetry: 97 (RA) Pulse Ox Interpretation: Normal Medical Decision Making Medical Decision Making: Time: 352 A/P: 23 years old presents with PCP abuse and auditory hallucination --Will require psych clearance 600 PAtient cleared by crisis with diagnosis of PCP abuse Well appearing upon discharge Scribe Attestation: Documented by Kateryna Valdze, acting as a scribe for Eliecer Bonilla MD. Provider Scribe Attestation: All medical record entries made by the Scribe were at my direction and personally dictated by me. I have reviewed the chart and agree that the record accurately reflects my personal performance of the history, physical exam, medical decision making, and the department course for this patient. I have also personally directed, reviewed, and agree with the discharge instructions and disposition. Disposition - Clinical Impression Clinical Impression: PCP abuse - Disposition Referrals: [facility] [Outside] Disposition: Routine/Home Disposition Time: 06:02 Condition: STABLE Instructions: Drug Abuse and Drug Addiction (DC) Forms: [employer] (Romansh)
[2018-08-20 06:48] VITALS: BP 115/71; PULSE 89; RESP 16; TEMP 98.6; O2SAT 98
== END 2018-08-20 06:37 | disposition home or self-care (01) ==
LOC: H.ER 03:31
DX: F16.10 Hallucinogen abuse, uncomplicated (principal); F17.200 Nicotine dependence, unspecified, uncomplicated; Z86.59 Personal history of other mental and behavioral disorders

== ENCOUNTER 2018-08-20 12:00 | Emergency (ER) | payer MEDICAID, MEDICARE ==
[2018-08-20 12:00] VITALS: BMI 28.1
[2018-08-20 12:06] VITALS: BP 125/70; PULSE 75; RESP 16; TEMP 97; O2SAT 100
--- NOTE | 2018-08-20 17:47 | ED PDOC ---
HPI: Psych/Substance Abuse Time Seen by Provider: 08/20/18 12:09 Chief Complaint (Nursing): Substance Abuse Chief Complaint (Provider): Substance Abuse History Per: Patient History/Exam Limitations: no limitations Modifying Factor(s): Other (PCP) Additional Complaint(s): 23 y/o male with history of PCP abuse was brought to the ED by ambulance because he was found lying on the ground sleeping and admits to "dipping." Patient was seen here in the ED earlier today for auditory hallucinations and was cleared by psych and was discharged. Patient denies any visual or auditory hallucinations as well as any HI/SI. He has no physical complaints. Patient states he feels fine and is just hungry and would like to sleep. Past Medical History Reviewed: Historical Data Vital Signs: Last Vital Signs Temp 97.0 F L 08/20/18 12:04 Pulse 75 08/20/18 12:04 Resp 16 08/20/18 12:04 BP 125/70 08/20/18 12:04 Pulse Ox 100 08/20/18 12:04 - Medical History PMH: Bipolar Disorder, Depression, Schizophrenia Denies: Diabetes, Hepatitis, HIV, HTN, Chronic Kidney Disease, Seizures, Sexually Transmitted Disease - Family History Family History: States: Unknown Family Hx - Immunization History Hx Tetanus Toxoid Vaccination: No Hx Influenza Vaccination: No Hx Pneumococcal Vaccination: No - Home Medications Home Medications: Ambulatory Orders Medication Instructions Recorded Amoxicillin 500 mg PO TID #21 tablet 08/17/18 Ibuprofen [Motrin Tab] 600 mg PO Q6 #15 tab 08/17/18 - Allergies Allergies/Adverse Reactions: Allergies Allergy/AdvReac Type Severity Reaction Status Date / Time No Known Allergies Allergy Verified 08/20/18 12:04 Review of Systems ROS Statement: Except As Marked, All Systems Reviewed And Found Negative Psych: Negative for: Psychosis, Suicidal ideation Physical Exam - Reviewed Nursing Documentation Reviewed: Yes Vital Signs Reviewed: Yes - Physical Exam Appears: Positive for: No Acute Distress Cardiovascular/Chest: Positive for: Regular Rate, Rhythm. Negative for: Murmur Respiratory: Positive for: Normal Breath Sounds. Negative for: Respiratory Distress Neurologic/Psych: Positive for: Alert, Oriented, Gait (normal). Negative for: Motor/Sensory Deficits, Aphasia (speaking full setences) - ECG O2 Sat by Pulse Oximetry: 100 (RA) Pulse Ox Interpretation: Normal Medical Decision Making Medical Decision Making: Time: Initial Impression: substance abuse Initial Plan: normal exam Pt clinically sober and ambulating with steady gait. Stable for discharge Scribe Attestation: Documented by Yoni Alonzo, acting as a scribe for Lakshmi Riddle PA-C. Provider Scribe Attestation: All medical record entries made by the Scribe were at my direction and personally dictated by me. I have reviewed the chart and agree that the record accurately reflects my personal performance of the history, physical exam, medical decision making, and the department course for this patient. I have also personally directed, reviewed, and agree with the discharge instructions and disposition. Disposition - Clinical Impression Clinical Impression: Substance abuse, PCP abuse - Patient ED Disposition Is Patient to be Admitted: No - Disposition Disposition: Routine/Home Disposition Time: 17:26 Condition: STABLE Additional Instructions: You should seek help with your substance. Consider going to narcotics anonymous. Instructions: Drug Abuse and Drug Addiction (DC), Drug Abuse Treatment Forms: [employer] (Paraguayan) Print Language: [email or web address]
== END 2018-08-20 17:26 | disposition home or self-care (01) ==
LOC: H.ER 12:00
DX: Z86.59 Personal history of other mental and behavioral disorders (principal)